=== PATIENT | female | born 1970 | race Caucasian/White ===

== ENCOUNTER 2024-01-29 08:40 | Outpatient (CLI) | payer BC, SELFPAY ==
--- NOTE | ~2024-01-29 | US_ITS ---
EXAMINATION: US thyroid DATE: 01/29/2024 08:57 INDICATION: Janiya's thyroiditis TECHNIQUE: Multiple ultrasound images of the thyroid were obtained. COMPARISON: None. FINDINGS: The right thyroid lobe measures 4.1 x 1.8 x 1.7 cm. The left thyroid lobe is not visualized and was reportedly resected 13 years prior. No residual thyroid tissue identified at the left thyroid fossa. The remaining thyroid isthmus measures 2 mm thickness. There is heterogeneous echogenicity with parti al echotexture and increased vascular flow on color Doppler in the right thyroid lobe. No discrete no dules identified. IMPRESSION: 1. Diffuse heterogeneous echogenicity with increased vascular flow throughout the right thyroid lobe without discrete nodules. 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 2. Status post left thyroidectomy. Reviewed, dictated and finalized at location A. [employer] IMPRESSION: 1. Diffuse heterogeneous echogenicity with increased vascular flow throughout t he right thyroid lobe without discrete nodules. Appearance consistent with prov ided history of Janiya's thyroiditis. 2. Status post left thyroidectomy.
== END 2024-01-29 08:41 | disposition home or self-care (01) ==
PROVIDERS: Visit Provider Family Medicine
DX: E06.3 Autoimmune thyroiditis (principal); E89.0 Postprocedural hypothyroidism
CPT/HCPCS: 76536

== ENCOUNTER 2024-06-26 16:45 | Outpatient (CLI) | payer BC, SELFPAY ==
--- NOTE | ~2024-06-26 | XR_ITS ---
HISTORY: Pain in unspecified knee COMPARISON: None TECHNIQUE: 4 views of the right knee were performed FINDINGS: No acute or subacute fracture, erosion, lytic or sclerotic lesion. Medial tibiofemoral joint space narrowing is identified. Small suprapatellar joint effusion is identified. The infrapatellar joint space is clear. 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 Reviewed, dictated and finalized at location A. 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
== END 2024-06-26 16:46 | disposition home or self-care (01) ==
LOC: MICIMG 16:48
PROVIDERS: PCP Family Medicine; Visit Provider Family Medicine
DX: M17.11 Unilateral primary osteoarthritis, right knee (principal); M25.461 Effusion, right knee
CPT/HCPCS: 73564